=== PATIENT | female | born 1985 | race Two or more races ===

== ENCOUNTER 2021-04-22 20:19 | Emergency (ER) | payer OTHER ==
[~2021-04-22 20:19] MED LIST: TESSALON PERLE100 MG PO; ZPAK PO
[2021-04-22 21:24] LABS: BASOPHIL 0.4 % (0-2); EOSINOPHIL 0.8 % (0-5); HCT 39.9 % (37.0-47.0); HGB 12.8 g/dl (12.5-16.0); LYMPHOCYTE 21.7 % (15-48); MCHC 32.1 g/dL (32.0-36.0); MCV 80.9 fL (78.0-100.0); MONOCYTE 17.9 % (0-12); MPV 10.6 fL (6.0-9.5); NRBC 0; PLT 257 K/uL (150-400); RBC 4.93 M/uL (4.20-5.40); RDW 14.7 % (11.5-14.0); WBC 5.2 K/uL (4.0-10.5)
[2021-04-22 21:48] LABS: ALBUMIN 3.7 g/dL (3.4-5.0); BILIRUBIN - TOTAL 0.7 mg/dL (0.2-1.0); BUN/CREAT RATIO (CALC) 9.8 RATIO; CREATININE 0.92 mg/dL (0.51-0.95); FT4 (FREE T4) 1.4 ng/dL (0.76-1.46); GLOBULIN (CALCULATION) 4.2 g/dL; POTASSIUM 4.5 mmol/L (3.5-5.1); TOTAL PROTEIN 7.9 g/dL (6.4-8.2)
[2021-04-22 22:02] LABS: CORONAVIRUS 2019 SARS-COV-2 NEGATIVE (NEGATIVE); INFLUENZA A NAA NEGATIVE (NEGATIVE)
[2021-04-22 23:03] LABS: BILIRUBIN NEGATIVE (NEGATIVE); BLOOD NEGATIVE Ery/uL (NEGATIVE); CLARITY CLEAR (CLEAR); COLOR YELLOW (YELLOW); GLUCOSE (U) NORMAL (NORMAL); LEUKOCYTES NEGATIVE Leu/uL (NEGATIVE); NITRITE NEGATIVE (NEGATIVE); PROTEIN NEGATIVE (NEGATIVE)
== END 2021-04-23 00:35 | disposition home or self-care (01) ==
LOC: FER 20:19
PROVIDERS: Emergency Medicine Emergency Medical Services
DX: J06.9 Acute upper respiratory infection, unspecified (principal); E11.9 Type 2 diabetes mellitus without complications; I10 Essential (primary) hypertension; E78.5 Hyperlipidemia, unspecified; Z88.5 Allergy status to narcotic agent; Z88.4 Allergy status to anesthetic agent; Z79.84 Long term (current) use of oral hypoglycemic drugs; Z79.899 Other long term (current) drug therapy; Z79.82 Long term (current) use of aspirin; Z20.822 Contact with and (suspected) exposure to COVID-19
CPT/HCPCS: 36415; 71045; 80053; 81003; 84439; 84443; 84703; 85025; J0696; J1885; J7030; U0002

== ENCOUNTER 2021-04-29 13:49 | Emergency (ER) | payer OTHER ==
[2021-04-29 16:28] LABS: BASOPHIL 0.3 % (0-2); EOSINOPHIL 0 % (0-5); HCT 42.8 % (37.0-47.0); HGB 13.6 g/dl (12.5-16.0); LYMPHOCYTE 26.7 % (15-48); MCH 25.5 pg (25.0-31.0); MCHC 31.8 g/dL (32.0-36.0); MCV 80.3 fL (78.0-100.0); MONOCYTE 9.3 % (0-12); MPV 10.3 fL (6.0-9.5); NEUTROPHIL 63.4 % (41-80); NRBC 0; PLT 232 K/uL (150-400); RBC 5.33 M/uL (4.20-5.40); RDW 15.1 % (11.5-14.0); WBC 3.9 K/uL (4.0-10.5)
[2021-04-29 16:45] LABS: BUN/CREAT RATIO (CALC) 11.5 RATIO; CREATININE 1.3 mg/dL (0.51-0.95); POTASSIUM 3.8 mmol/L (3.5-5.1)
[2021-04-29] MEDS ORDERED: ZPAK PO (19:13)
[2021-04-29] MEDS ORDERED: MEDROL 4MG DOSEP4 MG PO (19:13)
== END 2021-04-29 19:50 | disposition home or self-care (01) ==
LOC: FER 13:49
PROVIDERS: Emergency Medicine
DX: U07.1 COVID-19 (principal); J12.82 Pneumonia due to coronavirus disease 2019; R42 Dizziness and giddiness; E11.9 Type 2 diabetes mellitus without complications; I10 Essential (primary) hypertension; E78.5 Hyperlipidemia, unspecified; Z85.850 Personal history of malignant neoplasm of thyroid; Z88.5 Allergy status to narcotic agent; Z88.4 Allergy status to anesthetic agent; Z79.899 Other long term (current) drug therapy; Z79.84 Long term (current) use of oral hypoglycemic drugs
CPT/HCPCS: 36415; 80048; 83605; 84484; 85025; 87040; 93005; J0456; J0696; J7030; J7050; M0245; Q0239; U0002

== ENCOUNTER 2021-05-02 15:08 | Inpatient (IN) | payer OTHER ==
[~2021-05-02] VITALS: Ht 162.6 cm; Wt 119.9 kg
[~2021-05-02 15:08] MED LIST changes: +MEDROL 4MG DOSEP4 MG PO
[2021-05-02 17:30] LABS: BASOPHIL 0.3 % (0-2); EOSINOPHIL 0 % (0-5); HCT 42.8 % (37.0-47.0); HGB 13.6 g/dl (12.5-16.0); MCH 25.5 pg (25.0-31.0); MCHC 31.8 g/dL (32.0-36.0); MCV 80.3 fL (78.0-100.0); MPV 10.1 fL (6.0-9.5); NEUTROPHIL 72.2 % (41-80); NRBC 0; PLT 299 K/uL (150-400); RBC 5.33 M/uL (4.20-5.40); WBC 7.5 K/uL (4.0-10.5)
[2021-05-02 17:40] LABS: INR 1.06 (0.9-1.2); PROTHROMBIN TIME 13.1 SECONDS (11.4-13.6); PTT 27.5 SECONDS (22.2-34.7)
[2021-05-02 17:44] LABS: ALBUMIN 3.5 g/dL (3.4-5.0); BILIRUBIN - TOTAL 0.7 mg/dL (0.2-1.0); BUN/CREAT RATIO (CALC) 11.5 RATIO; CREATININE 0.96 mg/dL (0.51-0.95); GLOBULIN (CALCULATION) 5.3 g/dL; MAGNESIUM 2.1 mg/dL (1.8-2.4); POTASSIUM 3.6 mmol/L (3.5-5.1); TOTAL PROTEIN 8.8 g/dL (6.4-8.2)
[2021-05-02 17:51] LABS: LACTIC ACID 1.6 mmol/L (0.4-1.9)
[2021-05-02 17:53] LABS: PRO-BNP 52 pg/mL (<125)
[2021-05-02] MEDS ORDERED: REQUIP0.25 MG PO (23:42)
[2021-05-02] MEDS ORDERED: OMEGA 3 1,0001 EACH PO (23:42)
[2021-05-02] MEDS ORDERED: WELLBUTRIN SR150 MG PO (23:42)
[2021-05-02] MEDS ORDERED: PRINIVIL10 MG PO (23:43)
[2021-05-02] MEDS ORDERED: METFORMIN HCL500 MG PO (23:43)
[2021-05-02] MEDS ORDERED: LOPRESSOR50 MG PO (23:44)
[2021-05-02] MEDS ORDERED: TRULICITY0.75 MG/0. IM (23:44)
[2021-05-02] MEDS ORDERED: CRESTOR10 MG PO (23:45)
[2021-05-02] MEDS ORDERED: NEXIUM 40MG CAP40 MG PO (23:45)
[2021-05-03] MEDS ORDERED: SYNTHROID100 MCG PO (04:55)
[2021-05-03 06:18] LABS: BASOPHIL 0.5 % (0-2); EOSINOPHIL 0 % (0-5); HCT 42.1 % (37.0-47.0); HGB 13.4 g/dl (12.5-16.0); LYMPHOCYTE 20.2 % (15-48); MCH 25.6 pg (25.0-31.0); MCHC 31.8 g/dL (32.0-36.0); MCV 80.3 fL (78.0-100.0); MONOCYTE 6.7 % (0-12); MPV 10.2 fL (6.0-9.5); NEUTROPHIL 72.4 % (41-80); PLT 290 K/uL (150-400); RBC 5.24 M/uL (4.20-5.40); WBC 4.4 K/uL (4.0-10.5)
[2021-05-03 06:36] LABS: NRBC 0
[2021-05-03 07:10] LABS: BUN/CREAT RATIO (CALC) 19.2 RATIO; CREATININE 0.78 mg/dL (0.51-0.95); POTASSIUM 3.9 mmol/L (3.5-5.1)
[2021-05-04 05:45] LABS: BASOPHIL 0.2 % (0-2); EOSINOPHIL 0 % (0-5); HCT 40.1 % (37.0-47.0); HGB 12.6 g/dl (12.5-16.0); LYMPHOCYTE 23.3 % (15-48); MCH 25.5 pg (25.0-31.0); MCHC 31.4 g/dL (32.0-36.0); MCV 81.2 fL (78.0-100.0); MONOCYTE 11.3 % (0-12); MPV 10.4 fL (6.0-9.5); NEUTROPHIL 64.7 % (41-80); NRBC 0; PLT 313 K/uL (150-400); RBC 4.94 M/uL (4.20-5.40); RDW 14.8 % (11.5-14.0); WBC 6.4 K/uL (4.0-10.5)
[2021-05-04 06:19] LABS: BILIRUBIN - TOTAL 0.6 mg/dL (0.2-1.0); BUN/CREAT RATIO (CALC) 24.3 RATIO; C-REACTIVE PROTEIN 2.5 mg/dL (<=0.90); CREATININE 0.74 mg/dL (0.51-0.95); GLOBULIN (CALCULATION) 4.7 g/dL; POTASSIUM 3.6 mmol/L (3.5-5.1); TOTAL PROTEIN 7.7 g/dL (6.4-8.2)
--- NOTE | 2021-05-06 01:16 | NUR ---
RT ENTERED ROOM AND PATIENT WAS ASLEEP WITH O2 OFF. PATIENT DID NOT REMEMBER TAKING IT OFF, WAS NOT SOA. SAT CHECKED AND PATIENT 96-97% ON RA. MDIs/ISB DONE AND PATIENT HAD GOOD STRONG NON PRODUCTIVE COUGHS. SAT RECHED AND PATIENT MAINTAINED STILL AT 96% PATIENT PREFERRED TO TRIAL OFF OXYGEN AGAIN. NICHOL DUQUE NOTIFIED. O2 PLACED STANDBY AT BEDSIDE. WILL CONTINUE TO MONITOR PATIENT PATIENT DOING BETTER ON 1SB THIS ROUND.
[2021-05-06 05:56] LABS: BASOPHIL 0.1 % (0-2); EOSINOPHIL 0 % (0-5); HCT 38.1 % (37.0-47.0); HGB 12.2 g/dl (12.5-16.0); MCH 25.6 pg (25.0-31.0); MONOCYTE 8.8 % (0-12); MPV 10.3 fL (6.0-9.5); NEUTROPHIL 63.7 % (41-80); NRBC 0; PLT 375 K/uL (150-400); RBC 4.76 M/uL (4.20-5.40); RDW 14.6 % (11.5-14.0)
[2021-05-06 06:01] LABS: WBC 7.9 K/uL (4.0-10.5)
[2021-05-06 06:27] LABS: ALBUMIN 2.9 g/dL (3.4-5.0); BILIRUBIN - TOTAL 0.5 mg/dL (0.2-1.0); BUN/CREAT RATIO (CALC) 18.7 RATIO; CREATININE 0.75 mg/dL (0.51-0.95); GLOBULIN (CALCULATION) 4.3 g/dL; POTASSIUM 3.6 mmol/L (3.5-5.1); TOTAL PROTEIN 7.2 g/dL (6.4-8.2)
--- NOTE | 2021-05-06 09:37 | NUR ---
05/06/21 )2 has been delivered from [facility] per patient choice.
[2021-05-07] MEDS ORDERED: VENTOLIN HFA IN18 GM INH (12:09)
[2021-05-07] MEDS ORDERED: MACROBID100 MG PO (12:09)
[2021-05-07] MEDS ORDERED: DECADRON6 MG PO (12:09)
--- NOTE | 2021-05-07 14:38 | NUR ---
PATIENT IN STABLE CONDITION. ON ROOM AIR, SAT IS 95-96%. IV REMOVED PRIOR TO DISCHARGE. D/C INSTRUCTIONS DISCUSSED WITH PATIENT. D/C HOME WITH BOYFRIEND SCRIPTS SENT TO PHARM FOR HEALTHCARE FACILITY ADMINISTRATOR, WORK NOTE GIVEN
== END 2021-05-07 13:30 | disposition home or self-care (01) | DRG 177 ==
LOC: FER 15:08 → FTCU 20:10 → FMS 05-06 15:21
PROVIDERS: Emergency Medicine; Nurse Practitioner; ADMIT Internal Medicine
PROC: 8E0ZXY6 Isolation (ICD-10-PCS; principal; 2021-05-02)
PROC: XW033E5 Introduction of Remdesivir Anti-infective into Peripheral Vein, Percutaneous Approach, New Technology Group 5 (ICD-10-PCS; 2021-05-02)
DX: U07.1 COVID-19 (principal); J12.82 Pneumonia due to coronavirus disease 2019; N39.0 Urinary tract infection, site not specified; Z68.42 Body mass index [BMI] 45.0-49.9, adult; E03.9 Hypothyroidism, unspecified; E11.9 Type 2 diabetes mellitus without complications; I10 Essential (primary) hypertension; E78.5 Hyperlipidemia, unspecified; K21.9 Gastro-esophageal reflux disease without esophagitis; F41.9 Anxiety disorder, unspecified; B95.2 Enterococcus as the cause of diseases classified elsewhere; E66.01 Morbid (severe) obesity due to excess calories; Z79.84 Long term (current) use of oral hypoglycemic drugs; Z79.899 Other long term (current) drug therapy; Z85.850 Personal history of malignant neoplasm of thyroid; Z98.890 Other specified postprocedural states
CPT/HCPCS: 36415; 36600; 70450; 71275; 80048; 80053; 82728; 82803; 82962; 83036; 83605; 83735; 83880; 84145; 84484; 85025; 85610; 85730; 86140; 87040; 93005; 94010; 94640; C9399; J0456; J0696; J1100; J1650; J7030; J7050; J7120; J8540; M0245; Q0239; Q9967; U0002